=== PATIENT | male | born 1985 | race Caucasian/White ===

== ENCOUNTER 2018-05-15 08:23 | Emergency (ER) | payer OTHER ==
--- NOTE | 2018-05-15 09:19 | ER Document Report ---
ED General - General Chief Complaint: Groin Pain Stated Complaint: GROIN PAIN Time Seen by Provider: 05/15/18 08:46 Notes: Patient is a 32-year-old male that presents to the emergency department for chief complaint of right groin pain. Patient states that he first noticed this pain this past Sunday morning, and has been essentially persistent since then , describes it as a sharp and aching pain that is constant. It is somewhat improved since then but still persistent so he came to the emergency department to have this evaluated. He currently rates it as a 3 out of 10, worse with any palpation, or if he would lie on that side. He states that the pain radiates into his right testicle, he also has some pain on the left but is not as bad. Denies noting any bulging, no prior history of hernias. Denies having any dysuria, hematuria or urinary frequency. Past Medical History: Denies chronic medical conditions Past Surgical History: Low back surgery Social History: Denies tobacco, alcohol or drug use Family History: Reviewed and noncontributory for presenting illness Allergies: Reviewed, see documented allergy list. REVIEW OF SYSTEMS: Unless otherwise stated in this report the patient's positive and negative responses for review of systems for constitutional, eyes, ENT, cardiovascular, respiratory, gastrointestinal, neurological, genitourinary, musculoskeletal, and integumentary systems and related systems to the presenting problem are either as stated in the HPI or were not pertinent or were negative for the symptoms and/or complaints related to the presenting medical problem. PHYSICAL EXAMINATION: Vital signs reviewed, nursing noted reviewed. GENERAL: Well-appearing, well-nourished and in no acute distress. HEAD: Atraumatic, normocephalic. EYES: Eyes appear normal, extraocular movements intact, sclera anicteric, conjunctiva are normal. ENT: nares patent, oropharynx clear without exudates. Moist mucous membranes. NECK: Normal range of motion, supple without lymphadenopathy LUNGS: Breath sounds clear to auscultation bilaterally and equal. No wheezes rales or rhonchi. HEART: Regular rate and rhythm without murmurs ABDOMEN: Soft, nontender, normoactive bowel sounds. No rebound, guarding, or rigidity. No masses appreciated. Male genital: No palpable hernia bilaterally, no redness, rashes, no penile tenderness, there is tenderness to palpation over the inguinal ligament, without appreciable hernia. Testicles are unremarkable, no masses palpated. EXTREMITIES: Nontender, good range of motion, no pitting or edema. NEUROLOGICAL: No focal neurological deficits. Moves all extremities spontaneously Motor and sensory grossly intact on exam. PSYCH: Normal mood, normal affect. SKIN: Warm, Dry, normal turgor, no rashes or lesions noted on exposed skin TRAVEL OUTSIDE OF THE [place] IN LAST 30 DAYS: No - Related Data Allergies/Adverse Reactions: gentamicin Allergy (Verified 05/15/18 09:05) Sulfa (Sulfonamide Antibiotics) Allergy (Verified 05/15/18 09:05) sulfisoxazole [From Gantrisin] Allergy (Verified 05/15/18 09:05) Past Medical History - Social History Smoking Status: Never Smoker Family History: Reviewed & Not Pertinent Patient has suicidal ideation: No Patient has homicidal ideation: No Renal/ Medical History: Denies: Hx Peritoneal Dialysis Physical Exam - Vital signs Vitals: Temp Pulse Resp BP Pulse Ox 97.5 F 79 16 142/88 H 98 05/15/18 08:29 05/15/18 08:29 05/15/18 08:29 05/15/18 08:29 05/15/18 08:29 Course - Re-evaluation Re-evalutation: Patient seen and examined vital signs reviewed. Laboratory data and imaging were ordered as appropriate for the patient's presenting symptoms and complaint, with consideration of any critical or life threatening conditions that may be associated with their obtained history and exam as noted above. Patient was treated with IM Toradol 60 mg, scrotal ultrasound was ordered. Results were reviewed when available and demonstrated what appeared to be epididymitis, possible mass versus infection, posterior to the right testicle The patient was re-evaluated and was improved, results discussed Evaluation was most consistent with epididymitis, patient treated with Rocephin , given a prescription for doxycycline 100 mg for 10 days, given a prescription for naproxen as well. He is advised to follow-up with urology, he is given a copy of his results. Patient understands plan of care and discharged home. Results were discussed with the patient at this point, after careful consideration I feel that that patient can be discharged from the emergency department, the patient was educated treatments and reasons to return to the emergency department based on their presumed diagnosis as noted above, they were advised to followup with a primary care physician in 2-3 days. Patient was agreeable to plan of care. *Note is created using voice recognition software and may contain spelling, syntax or grammatical errors. Scrotum Ultrasound 05/15/18 09:19 IMPRESSION: Hypoechoic area in the inferior aspect of the right testicle as noted above which I cannot exclude as a mass or inflammatory/ infectious process. Edematous changes in the epididymal tails bilaterally with increased vascularity which I cannot exclude as bilateral epididymitis. Other findings as noted above Laboratory 05/15/18 09:23 Urine Color YELLOW Urine Appearance CLEAR Urine pH 7.0 Ur Specific [place] 1.018 Urine Protein NEGATIVE Urine Glucose (UA) NEGATIVE Urine Ketones NEGATIVE Urine Blood NEGATIVE Urine Nitrite NEGATIVE Urine Bilirubin NEGATIVE Urine Urobilinogen NEGATIVE Ur Leukocyte Esterase NEGATIVE Urine WBC (Auto) 0 Urine RBC (Auto) 0 Squamous Epi Cells Auto <1 Urine Mucus (Auto) RARE Urine Ascorbic Acid NEGATIVE - Vital Signs Vital signs: Temp Pulse Resp BP Pulse Ox 98.8 F 72 18 142/89 H 99 05/15/18 12:41 05/15/18 12:41 05/15/18 12:41 05/15/18 12:41 05/15/18 12:41 Discharge - Discharge Clinical Impression: Epididymitis Disposition: HOME, SELF-CARE Instructions: Epididymitis ([facility]) Additional Instructions: Please take the full course of the antibiotics prescribed, and take the anti- inflammatory, you need to follow-up with the urologist, to follow-up on your ultrasound results. A copy has been provided. Prescriptions: Doxycycline Hyclate 100 mg PO BID #20 capsule Naproxen 500 mg PO Q12H PRN #30 tablet PRN Reason: pain Referrals: JOSE GARCIA MD [ACTIVE STAFF] - Follow up in 3-5 days (or your primary care. ) CARRI KELLY MD [NO LOCAL MD] - Follow up in 3-5 days (UROLOGY )
[2018-05-15] MEDS: KETOROLAC TROMETHAMINE 60 MG/2 ML SDV IM ONE ×2 (10:01→10:04)
[2018-05-15 10:06] LABS: APPEARANCE,URINE CLEAR; BILIRUBIN,URINE NEGATIVE (NEGATIVE); COLOR,URINE YELLOW; GLUCOSE, URINE NEGATIVE (NEGATIVE); KETONES,URINE NEGATIVE (NEGATIVE); LEUKOCYTE ESTERASE,URINE NEGATIVE (NEGATIVE); NITRITE,URINE NEGATIVE (NEGATIVE); PROTEIN,URINE NEGATIVE (NEGATIVE); URINE SPECIFIC GRAVITY 1.018; UROBILINOGEN,URINE NEGATIVE mg/dL (<2.0)
--- NOTE | 2018-05-15 11:18 | RADIOLOGY REPORT (SQ) ---
EXAM DESCRIPTION: U/S SCROTUM W/DOPPLER COMPLETED DATE/TIME: 05/15/2018 11:01 am REASON FOR STUDY: RIGHT GROIN/TESTICLE PAIN COMPARISON: None. TECHNIQUE: Static and realtime viera scale imaging of the scrotum and testes. Selected color Doppler and spectral images recorded to document blood flow. LIMITATIONS: None. FINDINGS: RIGHT: TESTICLE: Normal size. There is a hypoechoic area in the inferior aspect of the right testicle with vascularity which I cannot exclude as a mass or inflammatory/ infectious process. EPIDIDYMIS: There are edematous changes in the epididymal tail with increased vascularity which I can not exclude as epididymitis. HYDROCELE OR VARICOCELE: No. HERNIA OR EXTRA-TESTICULAR MASS: No. OTHER: No other significant finding. LEFT: TESTICLE: Normal size. Normal echotexture. Normal blood flow. No mass. Tiny subcentimeter cyst is identified measuring 4 x 5 x 5 mm in diameters. EPIDIDYMIS: There are edematous changes in the epididymal tail with increased vascularity which I can not exclude as epididymitis. HYDROCELE OR VARICOCELE: No. HERNIA OR EXTRA-TESTICULAR MASS: No. OTHER: No other significant finding. IMPRESSION: Hypoechoic area in the inferior aspect of the right testicle as noted above which I damaris ot exclude as a mass or inflammatory/ infectious process. Edematous changes in the epididymal tails bilaterally with increased vascularity which I cannot exclude as bilateral epididymitis. Other findi ngs as noted above TECHNICAL DOCUMENTATION: JOB ID: [id number] [employer]- All Rights Reserved Reading location - IP/workstation name: [email or web address]
[2018-05-15] MEDS ORDERED: CEFTRIAXONE INJ 250 MG VIAL IM ONE (12:01)
[2018-05-15] MEDS ORDERED: AZITHROMYCIN 250 MG TABLET PO ONE (12:02)
[2018-05-15 12:42] VITALS: BP 142/89
[2018-05-15] MEDS ORDERED: LIDOCAINE 1% INJ-PF (10 MG/ML) 30 ML SDV ONE (12:47)
[2018-05-15] MEDS ORDERED: LIDOCAINE 1% INJ-PF (10 MG/ML) 30 ML SDV INJ ONE (12:53)
== END 2018-05-15 12:56 | disposition home or self-care (01) ==
LOC: ER 08:23
DX: N45.1 Epididymitis (principal); R10.30 Lower abdominal pain, unspecified; Z88.2 Allergy status to sulfonamides
CPT/HCPCS: 99284; 96372; 81001; 76870; 93976; J3490; J0696; J1885